=== PATIENT | male | born 1960 | race Caucasian/White ===

== ENCOUNTER → 2016-09-30 | Outpatient (CLI) | payer OTHER ==
[~2016-09-30] MED LIST: ALBU1AER9 INH; ATEN50TA8 PO; ATOR10TA88 PO; CYCL10TA6 PO; DICLOFENAC GEL TOP; DUTA0.5C PO; HYDR-3126 PO; HYDR-5688 PO; HYDRCRE28 TOP; MELO15TA3 PO; METH500T37 PO; MIDRIN PO; MONT1TAB3 PO; OXYC-57 PO; PRED10TA PO; PRLSR20 PO; SILO8CAP PO; TRMO2580 TOP; VALA1TAB PO; VBRT100 PO; ZNTT/150 PO
== END | disposition home or self-care (01) ==
LOC: C.LABSPEC 11:03
PROVIDERS: ATTEND Urology
DX: R35.1 Nocturia (principal)

== ENCOUNTER 2017-05-03 09:09 | Day surgery (SDC) | payer OTHER ==
--- NOTE | 2017-04-13 15:19 | PAT Medication Instructions ---
Service Date Apr 13, 2017. Current Home Medication List Albuterol (Proair Hfa), 2 PUFF INH QID PRN for SOB/Wheezing Atenolol (Tenormin), 50 MG PO HS Atorvastatin (Lipitor), 1 TAB PO HS Cyclobenzaprine Hcl (Flexeril), 10 MG PO HS PRN for Muscle Spasms Dutasteride (Avodart), 0.5 MG PO HS Hydrocodone/Acetaminophen 5MG/325MG ([place] 5MG/325MG), 2 TABLETS PO HS Hydrocortisone (Rectal) (Proctozone-Hc), 1 DOSE TOP PRN Hydroxyzine Hcl (Atarax), 25 MG PO HS Methocarbamol (Robaxin), 500 MG PO QID PRN for rn Montelukast Sodium (Singulair), 10 MG PO HS Omeprazole (Prilosec), 20 MG PO BID PRN for prn Ranitidine (Zantac), 150 MG PO BID Silodosin (Rapaflo), 1 CAP PO HS Triamcinolone Acetonide (Topic (Triamcinolone Acet 0.025%), 1 APPLN TOP BID PRN for PRN Valacyclovir (Valtrex), 2 TAB PO BID PRN for cold sores [Diclofenac Gel], 1 DOSE TOP PRN [Midrin], 1 TAB 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 Instructions For Your Scheduled Surgery - Hold the following medications 24 hours prior to surgery: [Diclofenac Gel], 1 DOSE TOP PRN Triamcinolone Acetonide (Topic (Triamcinolone Acet 0.025%), 1 APPLN TOP BID PRN for PRN Hydrocortisone (Rectal) (Proctozone-Hc), 1 DOSE TOP PRN - Hold the following medications the morning of surgery: Ranitidine (Zantac), 150 MG PO BID Cyclobenzaprine Hcl (Flexeril), 10 MG PO HS PRN for Muscle Spasms Methocarbamol (Robaxin), 500 MG PO QID PRN for rn [Midrin], 1 TAB PO UD PRN for RN - Take the following medications the morning of surgery with a sip of water: Albuterol (Proair Hfa), 2 PUFF INH QID PRN for SOB/Wheezing (if needed) Valacyclovir (Valtrex), 2 TAB PO BID PRN for cold sores (if needed) Omeprazole (Prilosec), 20 MG PO BID PRN for prn (if needed) - Take the following medications as scheduled the night before surgery: Montelukast Sodium (Singulair), 10 MG PO HS Hydrocodone/Acetaminophen 5MG/325MG ([place] 5MG/325MG), 2 TABLETS PO HS Dutasteride (Avodart), 0.5 MG PO HS Albuterol (Proair Hfa), 2 PUFF INH QID PRN for SOB/Wheezing (if needed) Atenolol (Tenormin), 50 MG PO HS Atorvastatin (Lipitor), 1 TAB PO HS Ranitidine (Zantac), 150 MG PO BID Cyclobenzaprine Hcl (Flexeril), 10 MG PO HS PRN for Muscle Spasms (if needed) Valacyclovir (Valtrex), 2 TAB PO BID PRN for cold sores (if needed) Hydroxyzine Hcl (Atarax), 25 MG PO HS Methocarbamol (Robaxin), 500 MG PO QID PRN for rn (if needed) Silodosin (Rapaflo), 1 CAP PO HS Omeprazole (Prilosec), 20 MG PO BID PRN for prn (if needed) [Midrin], 1 TAB PO UD PRN for RN If you have any questions please call us at [phone] or [phone] or [phone]
[~2017-05-03] VITALS: Ht 180.3 cm; Wt 97.8 kg
[~2017-05-03 09:09] MED LIST changes: +ANCEF: ALLERGY NOTED TO ORDERED MEDICATION SCH; +CEFAZOLIN 2000 MG/60 ML D5W IV SCH; +LACTATED RINGER'S 1000ML 1,000 ML IV SCH; -MELO15TA3 PO; -OXYC-57 PO; -PRED10TA PO; -VBRT100 PO
[2017-05-03 09:56] VITALS: BP 160/91; PULSE 60; TEMP 36.7; O2SAT 96; Ht 180.3 cm; Wt 97.8 kg
--- NOTE | 2017-05-03 11:02 | History & Physical Bridge Note ---
H&P Re-Evaluation Bridge Note: I have examined the patient, reviewed the History & Physical and in the interval since the performance of the History & Physical I have noted the following changes of clinical significance: No changes noted
[2017-05-03] MEDS ORDERED: CLINDAMYCIN 600 MG/54 ML D5W IV ONE (11:04)
[2017-05-03] MEDS ORDERED: NURSING VERBAL MED ORDER ONE (11:15)
[2017-05-03] MEDS ORDERED: ATROPINE SULFATE 0.1 MG/ML 5ML SYR IV PRN (11:45)
[2017-05-03] MEDS ORDERED: EpHEDrine SULFATE INJ 50 MG/ML AMP IV PRN (11:45)
[2017-05-03] MEDS ORDERED: ONDANSETRON INJ 2 MG/ML 2 ML VIAL IV PRN (11:45)
[2017-05-03] MEDS ORDERED: PROPOFOL IV EMULSION 10 MG/ML 20 ML VIAL IV ONE (12:21)
[2017-05-03] MEDS ORDERED: ROCURONIUM BROMIDE 10 MG/ML 5 ML VIAL IV ONE (12:21)
[2017-05-03] MEDS ORDERED: LIDOCAINE 2% 20 MG/ML 5ML SYR ONE (12:21)
[2017-05-03] MEDS ORDERED: FENTANYL CITRATE INJ 50 MCG/1 ML 2 ML VIAL ONE ×2 (12:22→13:48)
[2017-05-03] MEDS ORDERED: MIDAZOLAM HCL 1 MG/ML 2ML VIAL ONE (12:22)
[2017-05-03] MEDS ORDERED: DEXAMETHASONE SOD INJ 4 MG/ML VIAL ONE (12:42)
[2017-05-03] MEDS ORDERED: ONDANSETRON INJ 2 MG/ML 2 ML VIAL ONE (12:42)
[2017-05-03] MEDS ORDERED: LIDOCAINE HCL 1% 20 ML VIAL ONE (12:48)
[2017-05-03] MEDS ORDERED: BUPIVACAINE 0.5 % 5 MG/1 ML MPF 30ML VIAL ONE (12:49)
[2017-05-03] MEDS ORDERED: BACITRACIN OINT 15 GM TUBE ONE (12:49)
[2017-05-03] MEDS ORDERED: EpHEDrine SULFATE INJ 50 MG/ML AMP ONE (13:44)
[2017-05-03] MEDS ORDERED: OXYC-57 PO ×2 (15:55→17:01)
[2017-05-03] MEDS: FENTANYL CITRATE INJ 50 MCG/1 ML 2 ML VIAL IV PRN ×3 (15:56→16:06)
--- NOTE | 2017-05-03 16:00 | Discharge Instructions ---
Discharge Instructions Date of Service May 03, 2017. Visit Reason for Visit: Left Inguinal Hernia Discharge Discharge Diagnosis / Problem: Left inguinal hernia Discharge Goals Goal(s): Decrease discomfort, Improve function Activity Recommendations Activity Limitations: as noted below Lifting Limitations: no more than 10 pounds Exercise/Sports Limitations: until after follow-up appointment May Resume Sexual Activity: after two weeks Shower/Bathe: no limitations Anesthesia . Post Anesthesia Instructions: If you have had General Anesthesia or IV Sedation: * Do not drive today. * Resume driving when surgeon permits. * Do not make important decisions or sign legal documents today. * Call surgeon for: 1. Temperature elevations greater than 101 degrees F. 2. Uncontrollable pain. 3. Excessive bleeding. 4. Persistent nausea and vomiting. 5. Medication intolerance (nausea, vomiting or rash). * For nausea and vomiting use only clear liquids such as: tea, soda, bouillon until nausea subsides, then gradually increase diet as tolerated. * If you have any concerns or questions, call your surgeon's office. If physician is unavailable and it is an emergency, call 911 or go to the nearest emergency room. . Instructions / Follow-Up Instructions / Follow-Up -You have Dermabond (like a glue) over your incision. This will fall off on its own over time. You may shower, just wash gently over the incision with warm , soapy water. Do not scrub. Do not soak, as in a bathtub or swimming pool. There are sutures under the skin which will dissolve over time. These will not need to be removed. -Do not lift anything greater than 10 lbs for at least 2 weeks. Further instructions will be given at your follow up appointment. -You may take Percocet as needed for pain not adequately controlled with Tylenol or ibuprofen. Do not take tylenol at the same time as percocet (there is tylenol in the percocet). -Do not drive until you are no longer taking narcotic pain medication (percocet ) and are completely pain free -Please call [phone] to schedule a follow up appointment with Dr. Leiva in approximately 1 to 2 weeks. Diet Recommendations Recommended Home Diet: no limitations, resume previous diet Procedures Procedures Performed: Left Inguinal Hernia Repair with Mesh Pending Studies Studies pending at discharge: no Medical Emergencies . Who to Call and When: Medical Emergencies: If at any time you feel your situation is an emergency, please call 911 immediately. . Non-Emergent Contact Non-Emergency issues call your: Primary Care Provider, Surgeon Call Non-Emergent contact if: temperature is above 101, your pain is not controlled, your pain is worsening, your pain is unusual for you, wound has increased drainage, wound has increased redness . . "Provider Documentation" section prepared by Zina Leiva. .
--- NOTE | 2017-05-03 16:22 | [facility] Operative Report ---
Operative Report Operative Date May 03, 2017. Pre-Operative Diagnosis Left Inguinal Hernia Post-Operative Diagnosis Left Inguinal Hernia Procedure(s) Performed Left Inguinal Hernia Repair with Mesh Surgeon Dr. Zina Leiva Ems Manager Surgeon(s) Dr. James Hurt Estimated Blood Loss 5ML Findings Large direct inguinal hernia defect and cord lipoma appreciated. Fluids 1000cc Specimens None per surgeon Drains None Anesthesia GETA, 34ml local anesthetic (1% Lidocaine + 0.5% Marcaine, 50/50% mix) Complication(s) None Disposition Recovery Room / PACU Indications Mickey Jarvis is a 56 year old man with a symptomatic left inguinal hernia. Indications, risks, benefits and potential complications of open left inguinal hernia repair with mesh discussed at length with the patient. All questions answered to apparent satisfaction. Patient elected to proceed with surgery, and freely signed the consent form. Description of Procedure Patient was brought to the operating room and and identified as Mickey Jarvis, 58. He was placed on the operating table in supine position. Anesthesia was induced, and patient was intubated with an LMA mask without difficulty. The left inguinal region was prepped and draped in the usual sterile fashion, including prepping and draping the testicles. A time out was held, verifying correct patient, laterality, procedure, equipment available, pre operative antibiotics, allergies and personnel. Local anesthetic was injected over the incision site. An incision was made over the inguinal canal and carried down through subcutaneous tissue. Stef's fascia was identified and incised. Subcutaneous fat was dissected down to the level of the external oblique aponeurosis covering the inguinal canal. The aponeurosis was found to be very thin overlying the canal. Local anesthetic was injected just deep to the fascia to elevate the plane, and the fascia was incised starting from the external ring and extending laterally approximately 5cm. Superior and inferior flaps of external oblique aponeurosis were gently freed from underlying contents of the inguinal canal. The cord structures were identified and encircled by a sravanthi drain, and retracted from underlying tissue. Cremaster muscles were gently dissected away from cord structures. Patient was found to have a large cord lipoma; this was gently dissected free from cord structures and ligated; no indirect hernia was appreciated. Upon exploration of the floor of the inguinal canal, patient was found to have a large direct defect with protruding fat. The edges of the defect were dissected free, and this defect was closed using 0 PDS in running fashion; this held the protruding fat in place. Next, a 10cm x 5cm ProLite mesh with a keyhole was placed over the floor of the inguinal canal, and secured medially at the pubic tubercle (taking care to not suture directly to periosteum) using 0 PDS. The mesh was then secured in place medially using 0 PDS in interrupted fashion to underlie the raised external oblique aponeurosis. Next, the lateral edge of mesh was secured in place using 0 PDS in interrupted fashion. The two superior leaves of mesh were secured to eachother and underlying fascia. The mesh was found to lie flat. Gentle traction was then placed on the left testicle to draw the cord structures down into proper place. The external oblique was then closed over the cord structures starting medially to re-establish the external ring using 2-0 Vicryl in running fashion. Sponge and instrument counts were verified to be correct x 2 by the nurse in charge. Stef's fascia was reapproximated using 2-0 vicryl. Dermis was reapproximated using 3-0 Vicryl in interrupted fashion. Skin was closed using 4-0 Monocryl in running fashion and Dermabond was applied. Patient was then awakened from anesthesia, extubated without difficulty, and was taken to PACU, having suffered no untoward events. I attest to the content of the Intraoperative Record and any orders documented therein. Any exceptions are noted below.
[2017-05-03 16:38] VITALS: BP 144/76; PULSE 78; TEMP 36.5; O2SAT 96
--- NOTE | 2017-05-03 16:40 | Anesthesiology Progress Note ---
Anesthesia Post Op Note Date & Time May 03, 2017 at 16:40 Vital Signs Pain Intensity: 2 Vital Signs Past 12 Hours Date Time Temp Pulse Resp B/P (MAP) Pulse Ox O2 Delivery O2 Flow Rate FiO2 05/03/17 16:26 36.8 05/03/17 16:25 79 18 05/03/17 16:25 73 99 05/03/17 16:21 145/81 05/03/17 16:20 78 14 95 05/03/17 16:20 78 14 05/03/17 16:16 162/88 05/03/17 16:11 150/92 05/03/17 16:10 78 10 97 05/03/17 16:10 80 10 94 05/03/17 16:06 156/96 05/03/17 16:01 154/95 05/03/17 16:00 79 13 98 05/03/17 16:00 79 13 05/03/17 16:00 Oxymask 3 05/03/17 15:56 159/93 05/03/17 15:55 80 16 98 05/03/17 15:55 82 15 98 05/03/17 15:52 143/99 05/03/17 15:45 36.5 83 16 157/86 99 Mask 10 05/03/17 09:56 36.7 60 18 160/91 (114) 96 Room Air Notes Mental Status: alert / awake / arousable, participated in evaluation Pt Amnestic to Procedure: Yes Nausea / Vomiting: adequately controlled Pain: adequately controlled Airway Patency, RR, SpO2: stable & adequate BP & HR: stable & adequate Hydration State: stable & adequate Anesthetic Complications: no major complications apparent
[2017-05-03] MEDS ORDERED: NURSING DECISION MEDICATION ORDER SCH (17:00)
[2017-05-03] MEDS ORDERED: HYDROCODONE/ACETAMOPHEN 5/325MG TAB ONE (17:06)
[2017-05-03 17:08] VITALS: BP 153/89; PULSE 79; O2SAT 95
[2017-05-03 17:38] VITALS: BP 160/88; PULSE 85; TEMP 36.4; O2SAT 96
== END 2017-05-03 18:20 | disposition home or self-care (01) ==
LOC: C.ACU 09:09
PROVIDERS: ATTEND Student in an Organized Health Care Education/Training Program
DX: K40.90 Unilateral inguinal hernia, without obstruction or gangrene, not specified as recurrent (principal); D17.6 Benign lipomatous neoplasm of spermatic cord; I10 Essential (primary) hypertension; E78.5 Hyperlipidemia, unspecified; G35 Multiple sclerosis; Z87.891 Personal history of nicotine dependence; Z79.899 Other long term (current) drug therapy

== ENCOUNTER 2022-01-07 17:09 | Inpatient (IN) ==
[2022-01-07 18:01] LABS: Basophils # (auto) 0.04 K/uL (0-0.2); Basophils % (auto) 0.4 %; Eosinophils # (auto) 0.12 K/uL (0-0.5); Eosinophils % (auto) 1.3 %; Hematocrit (blood only) 40.1 % (42-52); Hemoglobin 13.6 g/dL (14.0-18.0); Immature Granulocytes # (auto) 0.15 K/uL (0.00-0.02); Immature Granulocytes % (auto) 1.6 %; Lymphocytes # (auto) 1.28 K/uL (1.2-3.4); Lymphocytes % (auto) 13.8 %; Mean Corpuscular Hemoglobin 32.9 pg (25-34); Mean Corpuscular Hgb Conc 33.9 g/dL (32-36); Mean Corpuscular Volume 97.1 fL (80-100); Mean Platelet Volume 9.9 fL (7.4-10.4); Monocytes # (auto) 1.41 K/uL (0.11-0.59); Monocytes % (auto) 15.2 %; Neutrophils # (auto) 6.29 K/uL (1.4-6.5); Neutrophils % (auto) 67.7 %; Platelet Count 121 K/uL (130-400); RDW Coefficient of Variation 13.7 % (11.5-14.5); RDW Standard Deviation 48.5 fL (36.4-46.3); Red Blood Count 4.13 M/uL (4.7-6.1); White Blood Count 9.29 K/uL (4.8-10.8)
--- NOTE | 2022-01-07 18:07 | Emergency Department Note ---
Impression & Plan Bilateral pulmonary embolism, DVT (deep venous thrombosis), Thrombocytopenia ED Provider Note NAME: EMANI SHANE AGE: 61 SEX: M : 1960 ARRIVES VIA: Walk-In INFORMANT: Patient, ED PROVIDER(S): Rome Langley MD Chief Complaint: Outpatient referral, positive DVT ultrasound HPI: Patient presents due to concern for recent DVT ultrasound which was positive in the outpatient setting through [facility]. The patient states that he woke up 3 days ago and had some right leg swelling and associated pain in the posterior aspect of his right knee and calf area. Patient denies any recent surgeries procedures hospitalizations or trauma. Patient Nu[place] any chest pains or shortness of breath. The patient did develop some abdominal pain today which she states is mildly diffuse and achy and nonradiating. No nausea vomiting. Patient states he had a recent bowel movement and denies any dysuria hematuria or bright red blood per rectum. Patient does have a prior history of superficial thrombus for which she did take ibuprofen for last year. ROS: See HPI for pertinent positives and negatives. A total of 10 systems were reviewed and otherwise negative. Past medical history: See below Surgical history: See below Social history: See below Physical Exam: GENERAL: NAD, wearing glasses, non-toxic. EYE EXAM: Normal conjunctiva. PERRL, no anisocoria and EOM's grossly intact w/o pain. NECK: Supple, no nuchal rigidity, no adenopathy, non-tender. No signs of meningismus. LUNGS: Clear to auscultation. Normal chest wall mechanics. HEART: NSR, no MRG. ABDOMEN: Abdomen soft, diffuse discomfort but without peritonitis or localizing signs, normo-active bowel sounds, no masses, no rebound or guarding. BACK: No CVA TTP. SKIN: No rashes and no bruising. UPPER EXTREMITIES: Upper extremities are grossly normal. LOWER EXTREMITIES: Grossly normal, mild right compared to left lower extremity swelling, neurovascular intact distally with soft compartments. NEURO EXAM: A&O x3, cranial nerves II-XII grossly intact, normal speech, moves all 4 extremities on command w/o issue. Differential diagnoses: DVT, appendicitis, testicular torsion, infections, diverticulitis, UTI, obstruction, mesenteric ischemia, aortic pathology, inflammatory bowel disease, renal colic, PUD, pancreatitis, biliary pathology, hernia, volvulus, constipation, as well as other pathologies. Course: Patient was seen and evaluated the bedside. Full history physical exam was performed. EKG interpreted by me Normal sinus rhythm, rate of 81, normal intervals, normal axis, no ST changes or T WI. Imaging Studies: See Below Cardiac monitoring: An order was placed for continuous cardiac monitoring. The monitor shows a rate of 82 with sinus rhythm. MDM: Patient was seen due to concern for right lower extremity swelling pain ou tpatient DVT ultrasound. Blood work was obtained along with CT abdomen pelvis. Patient's blood work shows a normal white counts with mild anemia hemoglobin 13.6. Patient's platelet count is slightly lower at 121. The patient's kidney function unremarkable. COVID-negative. Patient CT does show iliac vein DVT IVC is clear but there is evidence of lower lobe bilateral PEs on the CAT scan of the abdomen pelvis. Given this concern I did recommend the patient stay in hospital. I conveyed these findings to the patient and her son at bedside. They are in agreement with plan of care. Patient has very mild thrombocytopenia I do not think that this would warrant not ordering heparin given the patient's DVT and PEs at this time. Medicine service will continue to monitor. Heparin standard with bolus ordered. I did speak to the on-call hospitalist Dr. Serrano and the patient was admitted to the medicine service. Critical Care: I have personally spent 37 minutes of critical care time in direct management of this patient. This includes bedside care, interpretation of diagnostic studies, and testing, discussion with consultants, patient, and family members, and other require inpatient management activities. This 37 minutes is in excess of all separately billable procedures. Past Med/Surg History Medical History Chronic low back pain Dyslipidemia GERD (gastroesophageal reflux disease) Hip pain, bilateral HTN (hypertension) Lumbar facet joint syndrome Multiple sclerosis Surgical History S/P cardiac cath "2002 - normal coronaries" S/P cervical discectomy S/P cholecystectomy S/P inguinal hernia repair Social History Smoking Status: Never smoker Communication Ability: Effective Hearing Ability: Normal Beliefs That Will Affect Care: None marital status: single Current Living Situation: Alone current occupational status: disabled Feels Safe at Home: Yes Allergies Allergies Allergy/AdvReac Type Severity Reaction Status Date / Time Penicillins Allergy Unknown FACIAL Verified 01/07/22 19:06 SWELLING Sulfa (Sulfonamide Allergy Unknown VOMITING, Verified 01/07/22 19:06 Antibiotics) DIFFICULTY URINATING Home Meds Home Medications Medication Instructions Recorded Confirmed atorvastatin 20 mg tablet (Lipitor) 20 mg PO QPM 07/21/19 01/07/22 dutasteride 0.5 mg capsule 0.5 mg PO DAILY 07/21/19 01/07/22 (Avodart) fexofenadine 60 mg tablet (Kaelyn 60 mg PO BID tab 07/21/19 01/07/22 Allergy) hydrocodone 5 mg-acetaminophen 325 1 tab PO Q6H PRN tab 07/21/19 01/07/22 mg tablet hydroxyzine HCl 25 mg tablet 25 mg PO HS PRN tab 07/21/19 01/07/22 montelukast 10 mg tablet 10 mg PO QPM 07/21/19 01/07/22 (Singulair) omeprazole 20 mg capsule,delayed 20 mg PO BID 07/21/19 01/07/22 release polyethylene glycol 3350 17 17 gm PO DAILY PRN 07/21/19 01/07/22 gram/dose oral powder (Miralax) albuterol sulfate 90 mcg/actuation 2 puff INHALATION Q4H PRN 01/07/22 01/07/22 aerosol inhaler (ProAir HFA) alfuzosin 10 mg tablet,extended 10 mg PO DAILY 01/07/22 01/07/22 release 24 hr atenolol 50 mg tablet 50 mg PO DAILY 01/07/22 01/07/22 azelastine 137 mcg (0.1 %) nasal 1 spray INTRANASAL BID 01/07/22 01/07/22 spray aerosol baclofen 10 mg tablet 10 mg PO TID 01/07/22 01/07/22 cefdinir 300 mg capsule 300 mg PO BID 01/07/22 01/07/22 cholecalciferol (vitamin D3) 25 25 mcg PO DAILY 01/07/22 01/07/22 mcg (1,000 unit) capsule (Vitamin D3) cyanocobalamin (vitamin B-12) 1,000 mcg PO DAILY 01/07/22 01/07/22 1,000 mcg tablet (Vitamin B-12) famotidine 40 mg tablet 40 mg PO DAILY 01/07/22 01/07/22 fluticasone propionate 50 2 spray INTRANASAL BID 01/07/22 01/07/22 mcg/actuation nasal spray,suspension prednisone 10 mg tablet 0 mg PO DAILY 01/07/22 01/07/22 triamcinolone acetonide 0.1 % 1 applic TOPICAL BID PRN 01/07/22 01/07/22 topical cream valacyclovir 1 gram tablet 2,000 mg PO Q12H PRN 01/07/22 01/07/22 Results & Data (ED) Vital Signs Vital Signs - 24 hr 01/07/22 17:17 01/07/22 17:56 01/07/22 19:17 Temperature 36.3 C L Temperature Source Skin Pulse Rate 89 Pulse Rate [Apical] 79 Pulse Rhythm Regular Pulse Strength Normal Respiratory Rate 18 17 Respiratory Effort / Characteristics Non-Labored Non-Labored Respiratory Depth Normal Blood Pressure 162/101 H Blood Pressure [Left Arm] 161/87 H Blood Pressure Mean 121 Blood Pressure Mean [Left Arm] 111 Blood Pressure Position Sitting Pulse Oximetry 96 96 97 Oxygen Delivery Method Room Air Room Air Room Air Sepsis Recent Fever Within 48 Hours No Sepsis New/Unexplained Change in Mental Status N/A Sepsis Action Taken by Nursing No Action Required Home Medications Current Medication List: was personally reviewed by me Laboratory Data Attestation: I reviewed the patient's lab results. Result diagrams: 01/07/22 17:47 01/07/22 17:47 Lab Results 01/07/22 01/07/22 01/07/22 Range/Units 17:47 17:47 17:47 WBC 9.29 (4.8-10.8) K/uL RBC 4.13 L (4.7-6.1) M/uL Hgb 13.6 L (14.0-18.0) g/dL Hct 40.1 L (42-52) % MCV 97.1 (80-100) fL MCH 32.9 (25-34) pg MCHC 33.9 (32-36) g/dL RDW Std Deviation 48.5 H (36.4-46.3) fL RDW Coeff of Aron 13.7 (11.5-14.5) % Plt Count 121 L (130-400) K/uL MPV 9.9 (7.4-10.4) fL Immature Gran % (Auto) 1.6 % Neut % (Auto) 67.7 % Lymph % (Auto) 13.8 % [place] % (Auto) 15.2 % Eos % (Auto) 1.3 % Baso % (Auto) 0.4 % Neut # (Auto) 6.29 (1.4-6.5) K/uL Lymph # (Auto) 1.28 (1.2-3.4) K/uL Huntington # (Auto) 1.41 H (0.11-0.59) K/uL Eos # (Auto) 0.12 (0-0.5) K/uL Baso # (Auto) 0.04 (0-0.2) K/uL Immature Gran # (Auto) 0.15 H (0.00-0.02) K/uL PT 10.7 (9.0-12.0) Seconds INR 1.0 (0.9-1.1) APTT 25.5 (21.0-31.0) Seconds PTT Ratio 0.9 Sodium 137 (136-145) mmol/L Potassium 4.4 (3.5-5.1) mmol/L Chloride 105 (98-107) mmol/L Carbon Dioxide 25 (21-32) mmol/L Anion Gap 7 (3-11) BUN 17 (6-23) mg/dl Creatinine 1.36 (0.6-1.4) mg/dl Est Cr Clr Drug Dosing 66.5 ml/min Est GFR ( Amer) 64.2 ml/min Est GFR (Non-Af Amer) 55.4 ml/min BUN/Creatinine Ratio 12.5 (10-20) Glucose 107 H (70-99(Fasting)) mg/dl Calcium 9.2 (8.5-10.1) mg/dl Total Bilirubin 0.6 (0.2-1.0) mg/dl AST 24 (13-39) U/L ALT 17 (7-52) U/L Alkaline Phosphatase 108 H (34-104) U/L Troponin I High Sens 7.3 (0-20) pg/ml Total Protein 7.0 (6.0-8.3) gm/dl Albumin 4.2 (3.4-5.0) gm/dl Globulin 2.8 (2.5-4.0) gm/dl Albumin/Globulin Ratio 1.5 (0.9-2) SARS-CoV-2, RNA, NAAT (NEGATIVE) 01/07/22 Range/Units 18:36 WBC (4.8-10.8) K/uL RBC (4.7-6.1) M/uL Hgb (14.0-18.0) g/dL Hct (42-52) % MCV (80-100) fL MCH (25-34) pg MCHC (32-36) g/dL RDW Std Deviation (36.4-46.3) fL RDW Coeff of Aron (11.5-14.5) % Plt Count (130-400) K/uL MPV (7.4-10.4) fL Immature Gran % (Auto) % Neut % (Auto) % Lymph % (Auto) % [place] % (Auto) % Eos % (Auto) % Baso % (Auto) % Neut # (Auto) (1.4-6.5) K/uL Lymph # (Auto) (1.2-3.4) K/uL Huntington # (Auto) (0.11-0.59) K/uL Eos # (Auto) (0-0.5) K/uL Baso # (Auto) (0-0.2) K/uL Immature Gran # (Auto) (0.00-0.02) K/uL PT (9.0-12.0) Seconds INR (0.9-1.1) APTT (21.0-31.0) Seconds PTT Ratio Sodium (136-145) mmol/L Potassium (3.5-5.1) mmol/L Chloride (98-107) mmol/L Carbon Dioxide (21-32) mmol/L Anion Gap (3-11) BUN (6-23) mg/dl Creatinine (0.6-1.4) mg/dl Est Cr Clr Drug Dosing ml/min Est GFR ( Amer) ml/min Est GFR (Non-Af Amer) ml/min BUN/Creatinine Ratio (10-20) Glucose (70-99(Fasting)) mg/dl Calcium (8.5-10.1) mg/dl Total Bilirubin (0.2-1.0) mg/dl AST (13-39) U/L ALT (7-52) U/L Alkaline Phosphatase (34-104) U/L Troponin I High Sens (0-20) pg/ml Total Protein (6.0-8.3) gm/dl Albumin (3.4-5.0) gm/dl Globulin (2.5-4.0) gm/dl Albumin/Globulin Ratio (0.9-2) SARS-CoV-2, RNA, NAAT NEGATIVE (NEGATIVE) Administered Medications Discontinued Medications Ioversol (Optiray 320 100ml) 93 ml IV ONCE ONE Stop: 01/07/22 19:03 Last Admin: 01/07/22 19:02 Dose: 93 ml Documented by: [id number] Imaging Data Radiologist's Impression: Abdomen/Pelvis CT 01/07/22 18:19 CT SCAN OF THE ABDOMEN AND PELVIS WITH IV CONTRAST CLINICAL HISTORY: Generous abdominal pain. Recent diagnosis of DVT. COMPARISON STUDY: No priors. TECHNIQUE: Following the IV administration of 93 cc of Optiray 320, CT scan of the abdomen and pelvis is performed from the lung bases to the proximal femora. Images are reviewed in the axial, sagittal, and coronal planes. IV contrast was administered without complication. A dose lowering technique was utilized adhering to the principles of ALARA. CT DOSE: 632.41 mGy.cm FINDINGS: Lung bases: The heart is normal in size and without pericardial effusion. The lung bases are clear. There are bilateral lower lobe pulmonary emboli. A small hiatal hernia is noted. Liver: The contrast-enhanced liver is normal in size, contour, and attenuation. There is no intrahepatic biliary ductal dilatation. The hepatic veins and portal veins are patent. Gallbladder: Surgically absent noting clips in the gallbladder fossa. Spleen: Normal in size and attenuation. Pancreas: Unremarkable. Adrenal glands: Unremarkable. Kidneys: The contrast enhanced kidneys demonstrate cortical atrophy and are without hydronephrosis. The kidneys enhance symmetrically. Renal cysts measure up to 1.7 cm. Additional subcentimeter cortical hypodensities also likely represent cysts but are too small for definitive characterization. Abdominal vasculature: The abdominal aorta is normal in course and caliber noting moderate to advanced atherosclerotic calcification. Deep venous thrombosis identified in the right common femoral vein. This extends into the pelvis within the external iliac vein. No thrombus is identified in the IVC. Bowel: There is moderate sigmoid diverticulosis without CT evidence of acute diverticulitis. No bowel obstruction is identified. The appendix is well- visualized and normal. Peritoneum: There is no intraperitoneal free air or abdominal ascites. There is a small fat-containing umbilical hernia. Lymphadenopathy: None. Pelvic viscera: The bladder is decompressed and grossly unremarkable. The prostate gland is diminutive and heterogeneous. A fat-containing inguinal hernia is noted on the left. Skeletal structures: There is moderate lumbosacral spondylosis and mild scoliosis. No lytic or blastic lesions are seen. IMPRESSION: 1. Bilateral lower lobe pulmonary emboli. 2. Deep venous thrombosis is identified in the right lower extremity. This extends into the pelvis into the external iliac vein. The IVC appears clear. 3. No infectious or inflammatory findings are seen in the abdomen or pelvis. 4. Sigmoid diverticulosis without CT evidence of acute diverticulitis. 5. Additional findings as above. ACT 112: Negative or not required by law. Electronically signed by: Randolph Mullins M.D. 01/07/2022 7:22 PM Discharge Plan Visit Data Chief Complaint: Swelling/Edema to Extremity Stated Complaint: SENT BY . LEFT LEG HAS BLOOD CLOTS, SWELLING ED Provider: Rome Langley Discharge Problem: Bilateral pulmonary embolism, DVT (deep venous thrombosis), Thrombocytopenia Patient Disposition: Admitted As Inpatient Forms Stand Alone Forms: My [facility] [place] Respi Prescriptions Prescriptions: No Action hydrocodone-acetaminophen 5-325 mg tablet 1 tab PO Q6H PRN (Reason: Pain) RF: 0 atorvastatin [Lipitor] 20 mg tablet 20 mg PO QPM RF: 0 omeprazole 20 mg capsule,delayed release(DR/EC) 20 mg PO BID RF: 0 dutasteride [Avodart] 0.5 mg capsule 0.5 mg PO DAILY RF: 0 polyethylene glycol 3350 [Miralax] 17 gram/dose powder 17 gm PO DAILY PRN (Reason: Constipation) RF: 0 montelukast [Singulair] 10 mg tablet 10 mg PO QPM RF: 0 hydroxyzine HCl 25 mg tablet 25 mg PO HS PRN (Reason: Sleep) RF: 0 fexofenadine [Kaelyn Allergy] 60 mg tablet 60 mg PO BID RF: 0 prednisone 10 mg tablet 0 mg PO DAILY RF: 0 valacyclovir 1 gram Tablet 2,000 mg PO Q12H PRN (Reason: Cold Sores) RF: 0 famotidine 40 mg Tablet 40 mg PO DAILY RF: 0 cyanocobalamin (vitamin B-12) [Vitamin B-12] 1,000 mcg Tablet 1,000 mcg PO DAILY RF: 0 triamcinolone acetonide 0.1 % Cream 1 applic TOPICAL BID PRN (Reason: AFFECTED AREA) RF: 0 baclofen 10 mg Tablet 10 mg PO TID RF: 0 azelastine 137 mcg (0.1 %) Aerosol,Ramona 1 spray INTRANASAL BID RF: 0 albuterol sulfate [ProAir HFA] 90 mcg/actuation Hfa Aerosol Inhaler 2 puff INHALATION Q4H PRN (Reason: Wheezing) RF: 0 cefdinir 300 mg capsule 300 mg PO BID RF: 0 fluticasone propionate [Flonase] 50 mcg/actuation Ramona,Suspension 2 spray INTRANASAL BID RF: 0 atenolol 50 mg tablet 50 mg PO DAILY RF: 0 cholecalciferol (vitamin D3) [Vitamin D3] 25 mcg (1,000 unit) Capsule 25 mcg PO DAILY RF: 0 alfuzosin 10 mg tablet extended release 24 hr 10 mg PO DAILY RF: 0 Referrals Referrals: Juan Becerril MD [Primary Care Provider] -
[2022-01-07 18:10] LABS: Partial Thromboplastin Ratio 0.9; Partial Thromboplastin Time 25.5 Seconds (21.0-31.0); Prothrombin Time 10.7 Seconds (9.0-12.0)
[2022-01-07 18:21] LABS: Albumin Globulin Ratio 1.5 (0.9-2); Albumin Level 4.2 gm/dl (3.4-5.0); BUN Creatinine Ratio 12.5 (10-20); Bilirubin,Total 0.6 mg/dl (0.2-1.0); Calcium 9.2 mg/dl (8.5-10.1); Creatinine Clr Calc Pharmacy 66.5 ml/min; Est GFR (African American) 64.2 ml/min; Est GFR (Non-African American) 55.4 ml/min; Globulin 2.8 gm/dl (2.5-4.0); Potassium 4.4 mmol/L (3.5-5.1)
[2022-01-07 18:27] LABS: Troponin I High Sensitivity 7.3 pg/ml (0-20)
[2022-01-07] MEDS ORDERED: OPTIRAY 320 100ml IV ONE (19:02)
--- NOTE | 2022-01-07 19:24 | CT Scan Report ---
CT SCAN OF THE ABDOMEN AND PELVIS WITH IV CONTRAST CLINICAL HISTORY: Generous abdominal pain. Recent diagnosis of DVT. COMPARISON STUDY: No priors. TECHNIQUE: Following the IV administration of 93 cc of Optiray 320, CT scan of the abdomen and pelvi s is performed from the lung bases to the proximal femora. Images are reviewed in the axial, sagittal , and coronal planes. IV contrast was administered without complication. A dose lowering technique wa s utilized adhering to the principles of ALARA. CT DOSE: 632.41 mGy.cm FINDINGS: Lung bases: The heart is normal in size and without pericardial effusion. The lung bases are clear. T here are bilateral lower lobe pulmonary emboli. A small hiatal hernia is noted. Liver: The contrast-enhanced liver is normal in size, contour, and attenuation. There is no intrahepa tic biliary ductal dilatation. The hepatic veins and portal veins are patent. Gallbladder: Surgically absent noting clips in the gallbladder fossa. Spleen: Normal in size and attenuation. Pancreas: Unremarkable. Adrenal glands: Unremarkable. Kidneys: The contrast enhanced kidneys demonstrate cortical atrophy and are without hydronephrosis. T he kidneys enhance symmetrically. Renal cysts measure up to 1.7 cm. Additional subcentimeter cortical hypodensities also likely represent cysts but are too small for definitive characterization. Abdominal vasculature: The abdominal aorta is normal in course and caliber noting moderate to advance d atherosclerotic calcification. Deep venous thrombosis identified in the right common femoral vein. This extends into the pelvis within the external iliac vein. No thrombus is identified in the IVC. Bowel: There is moderate sigmoid diverticulosis without CT evidence of acute diverticulitis. No bowel obstruction is identified. The appendix is well-visualized and normal. Peritoneum: There is no intraperitoneal free air or abdominal ascites. There is a small fat-containin g umbilical hernia. Lymphadenopathy: None. Pelvic viscera: The bladder is decompressed and grossly unremarkable. The prostate gland is diminutiv e and heterogeneous. A fat-containing inguinal hernia is noted on the left. Skeletal structures: There is moderate lumbosacral spondylosis and mild scoliosis. No lytic or blasti c lesions are seen. IMPRESSION: 1. Bilateral lower lobe pulmonary emboli. 2. Deep venous thrombosis is identified in the right lower extremity. This extends into the pelvis in to the external iliac vein. The IVC appears clear. 3. No infectious or inflammatory findings are seen in the abdomen or pelvis. 4. Sigmoid diverticulosis without CT evidence of acute diverticulitis. 5. Additional findings as above. ACT 112: Negative or not required by law. Electronically signed by: Randolph Mullins M.D. 01/07/2022 7:22 PM
[2022-01-07] MEDS ORDERED: Heparin IV Adult Wt-Based Standard WITH Bolus Protocol IV STA (19:27)
[2022-01-07] MEDS ORDERED: HEPARIN SOD (PORCINE) 1000 UNIT/ML IV ONE (19:42)
[2022-01-07] MEDS ORDERED: HEPARIN SODIUM/DEXTROSE 25,000 UNITS/500 ML BAG IV SCH (19:45)
--- NOTE | 2022-01-07 19:52 | History & Physical Report ---
Date of Service January 07, 2022 Assessment & Plan (1) Pulmonary thromboembolism: Plan: Prior history of RLE superficial thrombophlebitis status post NSAID Rx Unprovoked event hypertension, elevated secondary discomfort hyperlipidemia on statin Rx GERD, usual discomfort on antacid regimen multiple sclerosis , in remission as per records chronic anemia, hemoglobin at baseline past tobacco abuse Medical telemetry IV heparin Defer discussion regarding home anticoagulation options to patient and AM provider. (Patient expressed interest in NOAC Rx.) Facilitate home BP med DVT prophylaxis. IV heparin Full code Text document was generated using [employer] voice recognition software. It may contain grammatical or spelling errors. Kindly contact undersigned for clarification of any documentation item in question. History of Present Illness Chief Complaint: DVT on ultrasound Primary Care Provider: Juan Becerril MD History obtained from patient and records. Medical history significant for hypertension, hyperlipidemia, chronic back pain, multiple sclerosis as per records, chronic anemia (baseline hemoglobin of 13), past tobacco abuse. Last confinement 2014 for left-sided jaw pain complaints attributed to GERD. Patient woke up 3 days ago with RLE swelling and discomfort. Achy left-sided chest pain and shortness of breath. Patient not sure if chest pain was from chronic shoulder pain. No recent prolonged vehicle travel or period of immobilization. No unusual weight loss. No prior history of DVTs. History of superficial femoral colitis RLE March 2021 treated with NSAIDs as per patient. Patient also complaining of achy abdominal pain attributed to GERD. Outpatient Dopplers showed : Extensive thrombus within the right lower extremity extending from the common femoral vein to the posterior tibial vein. Patient directed to ER for further evaluation. IV heparin initiated at the ER. Medical History as above Surgical History : Cholecystectomy, neck mass excision, hernia repair Family History : Heart disease, prostate cancer Personal/Social history : Past tobacco abuse, occasional EtOH intake, disabled Allergies Allergy/AdvReac Type Severity Reaction Status Date / Time Penicillins Allergy Unknown FACIAL Verified 01/07/22 19:06 SWELLING Sulfa (Sulfonamide Allergy Unknown VOMITING, Verified 01/07/22 19:06 Antibiotics) DIFFICULTY URINATING Home Medications Medication Instructions Recorded Confirmed Type atorvastatin 20 mg tablet (Lipitor) 20 mg PO QPM 07/21/19 01/07/22 History dutasteride 0.5 mg capsule 0.5 mg PO DAILY 07/21/19 01/07/22 History (Avodart) fexofenadine 60 mg tablet (Kaelyn 60 mg PO BID tab 07/21/19 01/07/22 History Allergy) hydrocodone 5 mg-acetaminophen 325 1 tab PO Q6H PRN tab 07/21/19 01/07/22 History mg tablet hydroxyzine HCl 25 mg tablet 25 mg PO HS PRN tab 07/21/19 01/07/22 History montelukast 10 mg tablet 10 mg PO QPM 07/21/19 01/07/22 History (Singulair) omeprazole 20 mg capsule,delayed 20 mg PO BID 07/21/19 01/07/22 History release polyethylene glycol 3350 17 17 gm PO DAILY PRN 07/21/19 01/07/22 History gram/dose oral powder (Miralax) albuterol sulfate 90 mcg/actuation 2 puff INHALATION Q4H PRN 01/07/22 01/07/22 History aerosol inhaler (ProAir HFA) alfuzosin 10 mg tablet,extended 10 mg PO DAILY 01/07/22 01/07/22 History release 24 hr atenolol 50 mg tablet 50 mg PO DAILY 01/07/22 01/07/22 History azelastine 137 mcg (0.1 %) nasal 1 spray INTRANASAL BID 01/07/22 01/07/22 History spray aerosol baclofen 10 mg tablet 10 mg PO TID 01/07/22 01/07/22 History cefdinir 300 mg capsule 300 mg PO BID 01/07/22 01/07/22 History cholecalciferol (vitamin D3) 25 25 mcg PO DAILY 01/07/22 01/07/22 History mcg (1,000 unit) capsule (Vitamin D3) cyanocobalamin (vitamin B-12) 1,000 mcg PO DAILY 01/07/22 01/07/22 History 1,000 mcg tablet (Vitamin B-12) famotidine 40 mg tablet 40 mg PO DAILY 01/07/22 01/07/22 History fluticasone propionate 50 2 spray INTRANASAL BID 01/07/22 01/07/22 History mcg/actuation nasal spray,suspension prednisone 10 mg tablet 0 mg PO DAILY 01/07/22 01/07/22 History triamcinolone acetonide 0.1 % 1 applic TOPICAL BID PRN 01/07/22 01/07/22 History topical cream valacyclovir 1 gram tablet 2,000 mg PO Q12H PRN 01/07/22 01/07/22 History Past Med/Surg History Medical History Chronic low back pain Dyslipidemia GERD (gastroesophageal reflux disease) Hip pain, bilateral HTN (hypertension) Lumbar facet joint syndrome Multiple sclerosis Surgical History S/P cardiac cath "2002 - normal coronaries" S/P cervical discectomy S/P cholecystectomy S/P inguinal hernia repair Social History Smoking Status: Former smoker Hx Alcohol Use: No Hx Substance Use: No Communication Ability: Effective Hearing Ability: Normal Beliefs That Will Affect Care: None marital status: single Current Living Situation: Alone Current Living Situation Comment: 1 level apartment current occupational status: disabled Feels Safe at Home: Yes Safety Concerns: Feels Safe At This Time Assistive Devices: Glasses Review of Systems Review of Systems: As per HPI, all other systems reviewed and negative Physical Exam Physical Exam: GENERAL: Comfortable, pleasant, no respiratory distress SKIN: Normal color, warm HEENT: [place] palpebral conjunctivae, no ptosis, moist buccal mucosa NECK : Supple, no tenderness CHEST : CTA, no tenderness HEART : RRR, no obvious murmurs ABDOMEN: Some distention, minimal central abdominal tenderness EXTREMITIES : Minimal RLE swelling with tenderness, no other conspicuous deformities noted NEUROLOGIC : Coherent, no facial asymmetry, no other gross focality Results & Data Results & Data ([facility]) Vital Signs (Past 12 Hours) Vital Signs Temp Pulse Pulse Resp BP BP Pulse Ox 01/07/22 19:17 79 17 161/87 H 97 01/07/22 17:56 96 01/07/22 17:17 36.3 C L 89 18 162/101 H 96 Laboratory Results Laboratory Results WBC 9.29 K/uL (4.8-10.8) 01/07/22 17:47 RBC 4.13 M/uL (4.7-6.1) L 01/07/22 17:47 Hgb 13.6 g/dL (14.0-18.0) L 01/07/22 17:47 Hct 40.1 % (42-52) L 01/07/22 17:47 MCV 97.1 fL (80-100) 01/07/22 17:47 MCH 32.9 pg (25-34) 01/07/22 17:47 MCHC 33.9 g/dL (32-36) 01/07/22 17:47 RDW Std Deviation 48.5 fL (36.4-46.3) H 01/07/22 17:47 RDW Coeff of Aron 13.7 % (11.5-14.5) 01/07/22 17:47 Plt Count 121 K/uL (130-400) L 01/07/22 17:47 MPV 9.9 fL (7.4-10.4) 01/07/22 17:47 Immature Gran % (Auto) 1.6 % 01/07/22 17:47 Neut % (Auto) 67.7 % 01/07/22 17:47 Lymph % (Auto) 13.8 % 01/07/22 17:47 [place] % (Auto) 15.2 % 01/07/22 17:47 Eos % (Auto) 1.3 % 01/07/22 17:47 Baso % (Auto) 0.4 % 01/07/22 17:47 Neut # (Auto) 6.29 K/uL (1.4-6.5) 01/07/22 17:47 Lymph # (Auto) 1.28 K/uL (1.2-3.4) 01/07/22 17:47 [place] # (Auto) 1.41 K/uL (0.11-0.59) H 01/07/22 17:47 Eos # (Auto) 0.12 K/uL (0-0.5) 01/07/22 17:47 Baso # (Auto) 0.04 K/uL (0-0.2) 01/07/22 17:47 Immature Gran # (Auto) 0.15 K/uL (0.00-0.02) H 01/07/22 17:47 PT 10.7 Seconds (9.0-12.0) 01/07/22 17:47 INR 1.0 (0.9-1.1) 01/07/22 17:47 APTT 25.5 Seconds (21.0-31.0) 01/07/22 17:47 PTT Ratio 0.9 01/07/22 17:47 Sodium 137 mmol/L (136-145) 01/07/22 17:47 Potassium 4.4 mmol/L (3.5-5.1) 01/07/22 17:47 Chloride 105 mmol/L (98-107) 01/07/22 17:47 Carbon Dioxide 25 mmol/L (21-32) 01/07/22 17:47 Anion Gap 7 (3-11) 01/07/22 17:47 BUN 17 mg/dl (6-23) 01/07/22 17:47 Creatinine 1.36 mg/dl (0.6-1.4) 01/07/22 17:47 Est Cr Clr Drug Dosing 66.5 ml/min 01/07/22 17:47 Est GFR ( Amer) 64.2 ml/min 01/07/22 17:47 Est GFR (Non-Af Amer) 55.4 ml/min 01/07/22 17:47 BUN/Creatinine Ratio 12.5 (10-20) 01/07/22 17:47 Glucose 107 mg/dl (70-99(Fasting)) H 01/07/22 17:47 Calcium 9.2 mg/dl (8.5-10.1) 01/07/22 17:47 Total Bilirubin 0.6 mg/dl (0.2-1.0) 01/07/22 17:47 AST 24 U/L (13-39) 01/07/22 17:47 ALT 17 U/L (7-52) 01/07/22 17:47 Alkaline Phosphatase 108 U/L (34-104) H 01/07/22 17:47 Troponin I High Sens 7.3 pg/ml (0-20) 01/07/22 17:47 Total Protein 7.0 gm/dl (6.0-8.3) 01/07/22 17:47 Albumin 4.2 gm/dl (3.4-5.0) 01/07/22 17:47 Globulin 2.8 gm/dl (2.5-4.0) 01/07/22 17:47 Albumin/Globulin Ratio 1.5 (0.9-2) 01/07/22 17:47 SARS-CoV-2, RNA, NAAT NEGATIVE (NEGATIVE) 01/07/22 18:36 Impressions Abdomen/Pelvis CT 01/07/22 18:19 CT SCAN OF THE ABDOMEN AND PELVIS WITH IV CONTRAST CLINICAL HISTORY: Generous abdominal pain. Recent diagnosis of DVT. COMPARISON STUDY: No priors. TECHNIQUE: Following the IV administration of 93 cc of Optiray 320, CT scan of the abdomen and pelvis is performed from the lung bases to the proximal femora. Images are reviewed in the axial, sagittal, and coronal planes. IV contrast was administered without complication. A dose lowering technique was utilized adhering to the principles of ALARA. CT DOSE: 632.41 mGy.cm FINDINGS: Lung bases: The heart is normal in size and without pericardial effusion. The lung bases are clear. There are bilateral lower lobe pulmonary emboli. A small hiatal hernia is noted. Liver: The contrast-enhanced liver is normal in size, contour, and attenuation. There is no intrahepatic biliary ductal dilatation. The hepatic veins and portal veins are patent. Gallbladder: Surgically absent noting clips in the gallbladder fossa. Spleen: Normal in size and attenuation. Pancreas: Unremarkable. Adrenal glands: Unremarkable. Kidneys: The contrast enhanced kidneys demonstrate cortical atrophy and are without hydronephrosis. The kidneys enhance symmetrically. Renal cysts measure up to 1.7 cm. Additional subcentimeter cortical hypodensities also likely represent cysts but are too small for definitive characterization. Abdominal vasculature: The abdominal aorta is normal in course and caliber noting moderate to advanced atherosclerotic calcification. Deep venous thrombosis identified in the right common femoral vein. This extends into the pelvis within the external iliac vein. No thrombus is identified in the IVC. Bowel: There is moderate sigmoid diverticulosis without CT evidence of acute diverticulitis. No bowel obstruction is identified. The appendix is well- visualized and normal. Peritoneum: There is no intraperitoneal free air or abdominal ascites. There is a small fat-containing umbilical hernia. Lymphadenopathy: None. Pelvic viscera: The bladder is decompressed and grossly unremarkable. The prostate gland is diminutive and heterogeneous. A fat-containing inguinal hernia is noted on the left. Skeletal structures: There is moderate lumbosacral spondylosis and mild scoliosis. No lytic or blastic lesions are seen. IMPRESSION: 1. Bilateral lower lobe pulmonary emboli. 2. Deep venous thrombosis is identified in the right lower extremity. This extends into the pelvis into the external iliac vein. The IVC appears clear. 3. No infectious or inflammatory findings are seen in the abdomen or pelvis. 4. Sigmoid diverticulosis without CT evidence of acute diverticulitis. 5. Additional findings as above. ACT 112: Negative or not required by law. Electronically signed by: Randolph Mullins M.D. 01/07/2022 7:22 PM Diagnostic Findings EKG as per my interpretation rate 80, NSR, LAD, LAFB, inferior infarct
[2022-01-07] MEDS ORDERED: ATENOLOL 50 MG TABLET PO ONE (20:41)
[2022-01-07] MEDS ORDERED: SODIUM CHLORIDE 0.9% 1000ML 1,000 ML IV ONE (20:47)
[2022-01-07] MEDS ORDERED: MoRPHine SULFATE 4 MG/ML 1 ML CARP\\VIAL IV PRN (22:31)
[2022-01-07] MEDS ORDERED: hydrOXYzine HCl 25 MG TAB PO PRN (22:31)
[2022-01-07] MEDS ORDERED: LORazepam 2 MG/1 ML VIAL IV PRN (22:31)
[2022-01-07] MEDS ORDERED: MONTELUKAST SODIUM 10 MG TABLET PO SCH (22:31)
[2022-01-07] MEDS ORDERED: ACETAMINOPHEN 325 MG TAB PO PRN (22:31)
[2022-01-07] MEDS ORDERED: ATORVASTATIN 20 MG TAB PO SCH (22:31)
[2022-01-07] MEDS ORDERED: PROMETHAZINE HCL 12.5 MG in SODIUM CHLORIDE 0.9% 50 ML IV PRN (22:31)
[2022-01-07] MEDS ORDERED: POLYETHYLENE (MIRALAX) 17 GM PACK PO PRN (22:31)
[2022-01-07] MEDS: HYDROCODONE/ACETAMOPHEN 5/325MG TAB PO PRN (22:59)
[2022-01-07] MEDS: AZELASTINE HCL 0.1% NASAL 200 SPRAYS/27,400 MCG BTL SCH (23:55)
[2022-01-07] MEDS: FEXOFENADINE 60 MG TAB PO SCH (23:56)
[2022-01-07] MEDS: BACLOFEN 10 MG TAB PO SCH (23:56)
[2022-01-07] MEDS: FLUTICASONE PROPIONATE NA SPR 16 GM BTL SCH (23:57)
[2022-01-07] MEDS: PANTOprazole 40 MG TAB PO SCH (23:58)
[2022-01-08 01:00] LABS: Appearance Urine Clear (Clear); Bacteria Urine Automated Negative (Negative); Blood Urine Negative (Negative); Color Urine Dark Yellow; Epithelial Cell Urine Auto 20-30 /lpf (0-5); Glucose Urine UA Negative (Negative); Ketones Urine Trace (Negative); Leukocyte Esterase Urine Negative (Negative); Nitrite Urine Negative (Negative); Protein Urine 1+ (Negative); RBC Urine Automated 0-4 /hpf (0-4); Specific Gravity Urine > 1.045 (1.000-1.030); Urobilinogen Urine Negative (Negative); pH Urine 6.5 (4.5-7.5)
[2022-01-08 01:06] LABS: Bilirubin Urine 1+ (Negative)
[2022-01-08 02:47] LABS: Prothrombin Time 11.1 Seconds (9.0-12.0)
[2022-01-08 02:51] LABS: Partial Thromboplastin Time 82.2 Seconds (21.0-31.0)
[2022-01-08] MEDS: HYDROCODONE/ACETAMOPHEN 5/325MG TAB PO PRN (05:03)
[2022-01-08 05:14] LABS: Basophils # (auto) 0.01 K/uL (0-0.2); Basophils % (auto) 0.1 %; Eosinophils # (auto) 0.02 K/uL (0-0.5); Eosinophils % (auto) 0.3 %; Hematocrit (blood only) 37.3 % (42-52); Hemoglobin 12.6 g/dL (14.0-18.0); Immature Granulocytes # (auto) 0.12 K/uL (0.00-0.02); Immature Granulocytes % (auto) 1.6 %; Lymphocytes # (auto) 1.37 K/uL (1.2-3.4); Lymphocytes % (auto) 18.4 %; Mean Corpuscular Hemoglobin 33.2 pg (25-34); Mean Corpuscular Hgb Conc 33.8 g/dL (32-36); Mean Corpuscular Volume 98.2 fL (80-100); Mean Platelet Volume 9.9 fL (7.4-10.4); Monocytes # (auto) 0.94 K/uL (0.11-0.59); Monocytes % (auto) 12.6 %; Neutrophils # (auto) 4.98 K/uL (1.4-6.5); Platelet Count 125 K/uL (130-400); RDW Coefficient of Variation 13.7 % (11.5-14.5); White Blood Count 7.44 K/uL (4.8-10.8)
[2022-01-08 05:30] LABS: BUN Creatinine Ratio 16.7 (10-20); Calcium 8.8 mg/dl (8.5-10.1); Creatinine Clr Calc Pharmacy 75.3 ml/min; Est GFR (African American) 74.7 ml/min; Est GFR (Non-African American) 64.4 ml/min; Potassium 4.5 mmol/L (3.5-5.1)
[2022-01-08 05:38] LABS: Partial Thromboplastin Ratio 2.5
[2022-01-08 05:48] LABS: Partial Thromboplastin Time 69.4 Seconds (21.0-31.0)
--- NOTE | 2022-01-08 07:16 | Ultrasound Report ---
RIGHT UPPER EXTREMITY VENOUS DOPPLER HISTORY: Right upper extremity pain COMPARISON STUDY: None. FINDINGS: The right internal jugular vein is patent. There is normal flow within the right subclavian vein. There is normal flow and compressibility within the right axillary, basilic, brachial, radial, ulnar, and visualized cephalic veins. IMPRESSION: No DVT within the right upper extremity. ACT 112: Negative or not required by law. Electronically signed by: Marty Cyr M.D. 01/08/2022 7:15 AM
[2022-01-08] MEDS ORDERED: ENOXAPARIN 100 MG/1ML SYR SQ SCH (08:00)
[2022-01-08] MEDS: FLUTICASONE PROPIONATE NA SPR 16 GM BTL SCH ×2 (08:22→08:46)
[2022-01-08] MEDS: BACLOFEN 10 MG TAB PO SCH (08:23)
[2022-01-08] MEDS: AZELASTINE HCL 0.1% NASAL 200 SPRAYS/27,400 MCG BTL SCH ×2 (08:23→08:46)
[2022-01-08] MEDS: PANTOprazole 40 MG TAB PO SCH (08:23)
[2022-01-08] MEDS: FEXOFENADINE 60 MG TAB PO SCH (08:23)
[2022-01-08] MEDS ORDERED: CYANOCOBALAMIN (B-12) 500 MCG TABLET PO SCH (09:00)
[2022-01-08] MEDS ORDERED: ALFUZOSIN HCL 10 MG TAB PO SCH (09:00)
[2022-01-08] MEDS ORDERED: FAMOTIDINE 40 MG TABLET PO SCH (09:00)
[2022-01-08 12:17] LABS: Partial Thromboplastin Ratio 1.5; Partial Thromboplastin Time 40.3 Seconds (21.0-31.0)
--- NOTE | 2022-01-08 12:44 | Discharge Summary ---
Date of Service January 08, 2022 Admission HPI Per Admitting Provider History obtained from patient and records. Medical history significant for hypertension, hyperlipidemia, chronic back pain, multiple sclerosis as per records, chronic anemia (baseline hemoglobin of 13), past tobacco abuse. Last confinement 2014 for left-sided jaw pain complaints attributed to GERD. Patient woke up 3 days ago with RLE swelling and discomfort. Achy left-sided chest pain and shortness of breath. Patient not sure if chest pain was from chronic shoulder pain. No recent prolonged vehicle travel or period of immobilization. No unusual weight loss. No prior history of DVTs. History of superficial femoral colitis RLE March 2021 treated with NSAIDs as per patient. Patient also complaining of achy abdominal pain attributed to GERD. Outpatient Dopplers showed : Extensive thrombus within the right lower extremity extending from the common femoral vein to the posterior tibial vein. Patient directed to ER for further evaluation. IV heparin initiated at the ER. Medical History as above Surgical History : Cholecystectomy, neck mass excision, hernia repair Family History : Heart disease, prostate cancer Personal/Social history : Past tobacco abuse, occasional EtOH intake, disabled Principal Diagnosis Right lower extremity DVT Discharge Exam Appears well, no acute distress, pleasant and comfortable Respiratory Breathing comfortably on room air, no wheezing/rhonchi/rales Cardiovascular regular rate and rhythm, no murmurs/rubs/gallops Gastrointestinal (Abdomen) soft, non tender Musculoskeletal non pitting edema right leg Neurologic awake, alert, spontaneously moving extremities Discharge Data Allergies Allergy/AdvReac Type Severity Reaction Status Date / Time Penicillins Allergy Unknown FACIAL Verified 01/07/22 19:06 SWELLING Sulfa (Sulfonamide Allergy Unknown VOMITING, Verified 01/07/22 19:06 Antibiotics) DIFFICULTY URINATING Consultations 01/07/22 19:42 ED Decision to Admit Stat Ordered Studies 01/07/22 18:19 CT abd pelvis IV con only Stat 01/08/22 04:53 US venous doppler UE RT Routine Hospital Course Mr Mickey Jarvis is a 61 year old man who has a history of right superficial thrombophlebitis of the saphenous vein (diagnosed 2020) for which he was treated with NSAIDs (per his report) and remaining PMHx per his H&P presented to the ER 01/07 for several days of right leg swelling. Here, he was found to have a DVT of his right leg which extended into his pelvis. He reports being up to date on his cancer screening (colonoscopy 1 year prior was reportedly normal), denies family history of blood clot, he is a non smoker, denies recent immobilization or travel so in other words, appears this current DVT is unprovoked. He reports a history of superficial clot in his saphenous vein diagnosed 1 year prior which was treated with ibuprofen (?). Patient was admitted here and placed on a heparin drip which was switched to therapeutic lovenox for ease of dosing. The next day, a prescription for Xarelto was sent to his pharmacy and confirmed to be covered by his insurance with a copay of <$10. He will go home on Xarelto for 3 month course and will need to discuss with his PCP whether he needs a Hematology referral for hypercoagulable workup or whether he should remain on blood thinner for life long since this would be his 2nd episode of unprovoked VTE. Total Time Total Time Spent Total Time Spent (In Minutes): 35 Discharge Plan Discharge Items Patient Disposition: Home - Self-Care Reason For Visit: PE DVT Discharge Diagnosis: Right lower extremity DVT Condition on Discharge: Good Activity: Resume your previous activity Non-emergency contact: Primary Care Provider Call non-emergency contact if: you have any medication questions and your symptoms worsen Follow-up/Referrals: Juan Becerril MD [Primary Care Provider] - (Date & Time 01/15/2022 11:20 AM Provider Juan Becerril MD [facility] ) Diet: Heart Healthy Addtl Attending Provider Instructions: You will be discharged on a blood thinner for 3 months. Please follow up with your primary care doctor to decide whether the course needs to be extended and also whether you need to be blood thinners for life. Pending Studies at Discharge: No Stand-Alone Forms: My [employer], Smoking Cessation Medications and DC Order Prescriptions: New Xarelto 15 mg tablet 15 mg PO BID 21 Days Qty: 42 RF: 0 Xarelto 20 mg tablet 20 mg PO DAILY Qty: 60 RF: 0 Continued hydrocodone-acetaminophen 5-325 mg tablet 1 tab PO Q6H PRN (Reason: Pain) RF: 0 atorvastatin [Lipitor] 20 mg tablet 20 mg PO QPM RF: 0 omeprazole 20 mg capsule,delayed release(DR/EC) 20 mg PO BID RF: 0 dutasteride [Avodart] 0.5 mg capsule 0.5 mg PO DAILY RF: 0 polyethylene glycol 3350 [Miralax] 17 gram/dose powder 17 gm PO DAILY PRN (Reason: Constipation) RF: 0 montelukast [Singulair] 10 mg tablet 10 mg PO QPM RF: 0 hydroxyzine HCl 25 mg tablet 25 mg PO HS PRN (Reason: Sleep) RF: 0 fexofenadine [Kaelyn Allergy] 60 mg tablet 60 mg PO BID RF: 0 prednisone 10 mg tablet 0 mg PO DAILY RF: 0 valacyclovir 1 gram Tablet 2,000 mg PO Q12H PRN (Reason: Cold Sores) RF: 0 famotidine 40 mg Tablet 40 mg PO DAILY RF: 0 cyanocobalamin (vitamin B-12) [Vitamin B-12] 1,000 mcg Tablet 1,000 mcg PO DAILY RF: 0 triamcinolone acetonide 0.1 % Cream 1 applic TOPICAL BID PRN (Reason: AFFECTED AREA) RF: 0 baclofen 10 mg Tablet 10 mg PO TID RF: 0 azelastine 137 mcg (0.1 %) Aerosol,[place] 1 spray INTRANASAL BID RF: 0 albuterol sulfate [ProAir HFA] 90 mcg/actuation Hfa Aerosol Inhaler 2 puff INHALATION Q4H PRN (Reason: Wheezing) RF: 0 cefdinir 300 mg capsule 300 mg PO BID RF: 0 fluticasone propionate 50 mcg/actuation [place],Suspension 2 spray INTRANASAL BID RF: 0 atenolol 50 mg tablet 50 mg PO DAILY RF: 0 cholecalciferol (vitamin D3) [Vitamin D3] 25 mcg (1,000 unit) Capsule 25 mcg PO DAILY RF: 0 alfuzosin 10 mg tablet extended release 24 hr 10 mg PO DAILY RF: 0 Discharge Orders: Discharge Order (Routine); Ordered 01/08/22 Ordered By: Sabas Gaytan Admission Data Admit Date/Time: 01/07/22 20:44 Attending Provider: Sabas Gaytan Admit Provider: Darren Serrano Primary Care Provider: Juan Becerril Other Providers: Darren Serrano Other Interventions: Discharge Summary Assessment (RN) Last Done: 01/08/22 11:38
--- NOTE | 2022-01-08 14:11 | Electrocardiogram Report ---
Test Reason : Blood Pressure : / mmHG Vent. Rate : 081 BPM Atrial Rate : 081 BPM P-R Int : 188 ms QRS Dur : 088 ms QT Int : 398 ms P-R-T Axes : 053 -21 033 degrees QTc Int : 462 ms Normal sinus rhythm Inferior infarct (cited on or before 13-APR-2017) Abnormal ECG When compared with ECG of 13-APR-2017 15:22, No significant change was found Confirmed by Can Loza ([id number]) on 01/08/2022 2:10:52 PM Referred By: Krystina Smith Confirmed By:Can Loza
[2022-01-08] MEDS ORDERED: ATENOLOL 50 MG TABLET PO SCH (21:00)
== END 2022-01-08 12:54 | disposition home or self-care (01) | DRG 299 ==
LOC: ED 17:09 → 2N 20:44
DX: I10 Essential (primary) hypertension; I82.401 Acute embolism and thrombosis of unspecified deep veins of right lower extremity; Z88.2 Allergy status to sulfonamides; E78.5 Hyperlipidemia, unspecified; D64.9 Anemia, unspecified; Z88.0 Allergy status to penicillin; K21.9 Gastro-esophageal reflux disease without esophagitis; I26.99 Other pulmonary embolism without acute cor pulmonale; G35 Multiple sclerosis